=== PATIENT | female | born 1940 | race Two or more races ===

== ENCOUNTER 2017-03-28 12:46 | Emergency (ER) | payer MEDICARE, MEDICAID ==
[2016-03-09 13:34] VITALS: BMI 31.7
[~2017-03-28 12:46] MED LIST: CYCLOBENZAPRINE10 MG PO; ELIQUIS2.5 MG PO; GLIPIZIDE10 MG PO; GLUCOPHAGE850 MG PO; HYDROCODONE-APA1 TAB PO; K-TAB10 MEQ PO; LASIX40 MG PO; LUMIGAN 0.01%2.5 ML EACH EYE; MS CONTIN15 MG PO; PRILOSEC20 MG PO; VENTOLIN HFA18 GM INH; XANAX1 MG PO
[2017-03-28 13:38] LABS: BASOPHILS 0.6 % (0-2); EOSINOPHILS 3.6 % (0-7); HEMATOCRIT 35.6 % (36.0-48.0); IMMATURE GRANULOCYTES 0.2 % (0-5); LYMPHOCYTES 27.5 % (15-50); MCH 30.5 pg (26.0-34.0); MCHC 33.7 g/dL (31.0-37.0); MCV 90.6 fL (80.0-100.0); MEAN PLATELET VOLUME 10.2 fL (7.4-10.4); MONOCYTES 6.2 % (2-11); NEUTROPHILS 61.9 % (40-80); PLATELET COUNT 150 10x3/uL (130-400); RBC 3.93 10x6/uL (4.00-5.40); RDW 12.7 % (11.5-14.5); WBC 6.6 10x3/uL (4.8-10.8)
[2017-03-28 14:00] LABS: ALBUMIN 3.3 g/dL (3.4-5.0); ANION GAP 12.3 mmol/L (8-16); BILIRUBIN - TOTAL 0.61 mg/dL (0.2-1.3); CALCIUM 8.9 mg/dL (8.5-10.1); CARBON DIOXIDE 26.8 mmol/L (21.0-32.0); CREATININE - SERUM 0.8 mg/dL (0.6-1.3); POTASSIUM - SERUM 4.1 mmol/L (3.5-5.1); PROTEIN - SERUM 7.1 g/dL (6.4-8.2)
== END 2017-03-28 18:05 | disposition home or self-care (01) ==
LOC: D.ER 12:46
PROVIDERS: Emergency Medicine
DX: E11.9 Type 2 diabetes mellitus without complications (principal); F41.9 Anxiety disorder, unspecified

== ENCOUNTER 2017-06-14 15:59 | Emergency (ER) | payer MEDICARE, MEDICAID ==
[2016-03-09 13:34] VITALS: BMI 31.7
[2017-06-14 16:46] LABS: BASOPHILS 0.6 % (0-2); HEMATOCRIT 37.9 % (36.0-48.0); IMMATURE GRANULOCYTES 0.1 % (0-5); MCH 30.5 pg (26.0-34.0); MCHC 34.3 g/dL (31.0-37.0); MEAN PLATELET VOLUME 9.7 fL (7.4-10.4); MONOCYTES 6.4 % (2-11); NEUTROPHILS 59.9 % (40-80); RBC 4.26 10x6/uL (4.00-5.40); RDW 12.7 % (11.5-14.5); WBC 6.7 10x3/uL (4.8-10.8)
[2017-06-14 16:58] LABS: PLATELET COUNT 182 10x3/uL (130-400)
[2017-06-14 16:59] LABS: APPEARANCE CLEAR (CLEAR); BILIRUBIN NEGATIVE (NEGATIVE); COLOR YELLOW (YELLOW); GLUCOSE NEGATIVE (NEGATIVE); KETONE NEGATIVE (NEGATIVE); LEUKOCYTE ESTERASE 2+ (NEGATIVE); NITRITE POSITIVE (NEGATIVE); PROTEIN TRACE mg/dL (NEGATIVE); RED CELLS - URINE 0-5 /hpf (0-5); SPECIFIC GRAVITY 1.025 (1.005-1.020); UROBILINOGEN NORMAL (NORMAL); WHITE CELLS - URINE >50 /hpf (0-5)
[2017-06-14 17:00] LABS: ALBUMIN 3.7 g/dL (3.4-5.0); ANION GAP 13.8 mmol/L (8-16); BILIRUBIN - TOTAL 0.7 mg/dL (0.2-1.3); CALCIUM 9.5 mg/dL (8.5-10.1); POTASSIUM - SERUM 3.8 mmol/L (3.5-5.1); PROTEIN - SERUM 7.7 g/dL (6.4-8.2)
[2017-06-14 17:00] LABS: BACTERIA MODERATE /hpf (NONE SEEN); MUCUS >1+ /lpf (NONE SEEN)
== END 2017-06-14 18:56 | disposition home or self-care (01) ==
LOC: D.ER 15:59
PROVIDERS: Emergency Medicine
DX: K92.2 Gastrointestinal hemorrhage, unspecified (principal); N39.0 Urinary tract infection, site not specified; R19.7 Diarrhea, unspecified; R11.10 Vomiting, unspecified

== ENCOUNTER → 2018-12-20 13:47 | Outpatient (CLI) | payer MEDICARE, MEDICAID ==
[2016-03-09 13:34] VITALS: BMI 31.7
== END | disposition home or self-care (01) ==
LOC: D.RAD 13:47
PROVIDERS: ATTEND Pain Medicine Interventional Pain Medicine
DX: M54.6 Pain in thoracic spine (principal); M54.2 Cervicalgia; M54.5 Low back pain

== ENCOUNTER → 2019-03-30 16:57 | Outpatient (CLI) | payer MEDICARE, MEDICAID ==
[2016-03-09 13:34] VITALS: BMI 31.7
== END | disposition home or self-care (01) ==
LOC: D.LABREF 16:57
PROVIDERS: ATTEND Urology
DX: D72.829 Elevated white blood cell count, unspecified (principal); R31.9 Hematuria, unspecified

== ENCOUNTER → 2019-04-25 21:40 | Outpatient (CLI) | payer MEDICARE, MEDICAID ==
[2016-03-09 13:34] VITALS: BMI 31.7
== END | disposition home or self-care (01) ==
LOC: D.LABREF 21:40
PROVIDERS: ATTEND Urology
DX: D72.829 Elevated white blood cell count, unspecified (principal)

== ENCOUNTER → 2020-12-12 12:43 | Outpatient (CLI) | payer MEDICARE, MEDICAID ==
[2016-03-09 13:34] VITALS: BMI 31.7
== END | disposition home or self-care (01) ==
LOC: D.MRI 12:43
PROVIDERS: ATTEND Pain Medicine Interventional Pain Medicine
DX: M47.896 Other spondylosis, lumbar region (principal)